=== PATIENT | female | born 1970 | race Two or more races ===

== ENCOUNTER 2024-10-11 11:45 | Emergency (ER) | payer MEDICAID ==
[~2024-10-11] VITALS: Ht 160 cm; Wt 60.8 kg
[2024-10-11 12:25] LABS: CALCIUM, SERUM 8.9 mg/dL (8.5-10.1); CREATININE 0.8 mg/dL (0.6-1.3); POTASSIUM 3.8 mmol/L (3.5-5.1)
[2024-10-11] MEDS ORDERED: IV NS 0.9% 250 ML IV ONE (12:27)
[2024-10-11] MEDS ORDERED: IOHEXOL-300 100 ML VIAL IV ONE (12:27)
[2024-10-11] MEDS ORDERED: CT SWABBABLE VALVE TRANS SET 1 EA INFUS.SET MC ONE (12:27)
[2024-10-11 12:35] LABS: BASOPHILS % (AUTO) 0.3 % (0.0-2.0); EOSINOPHILS # (AUTO) 0.1 K/uL (0.0-0.7); EOSINOPHILS % (AUTO) 1.1 % (0.0-6.0); HEMATOCRIT 43 % (33-45); HEMOGLOBIN 14.5 g/dL (11.5-14.8); LYMPHOCYTES # (AUTO) 1.5 K/uL (0.8-4.8); LYMPHOCYTES % (AUTO) 16.7 % (20.0-44.0); MEAN CORPUSCULAR HEMOGLOBIN 29 PG (26.0-33.0); MEAN CORPUSCULAR HGB CONC 34 g/dl (31.0-36.0); MEAN CORPUSCULAR VOLUME 85 fL (82-100); MONOCYTES # (AUTO) 0.6 K/uL (0.1-1.30); MONOCYTES % (AUTO) 6.9 % (2.0-12.0); NEUTROPHILS # (AUTO) 6.9 K/uL (1.8-8.9); PLATELET COUNT (AUTO) 255 K/uL (150-450); RED BLOOD CELL COUNT(AUTO) 5.08 MIL/uL (4.0-5.2); WHITE BLOOD COUNT (AUTO) 9.2 K/uL (4.3-11.0)
[2024-10-11] MEDS: CLINDAMYCIN 900 MG in IV D5W 100 ML IV ONE (14:30)
[2024-10-11 15:46] VITALS: BP 137/80; TEMP 98.5; O2SAT 95
== END 2024-10-11 15:47 | disposition home or self-care (01) ==
LOC: ER 11:55
DX: D84.821 Immunodeficiency due to drugs (principal); M06.9 Rheumatoid arthritis, unspecified; R09.81 Nasal congestion; K04.7 Periapical abscess without sinus; J32.9 Chronic sinusitis, unspecified
CPT/HCPCS: 99285; 96365; 70487; 85025; 80048; 36415; J3490; J7060; J7050; Q9967